=== PATIENT | female | born 1965 | race Two or more races ===

== ENCOUNTER 2021-11-15 19:06 | Inpatient (IN) | payer BC, OTHER ==
[~2021-11-15] VITALS: Ht 160 cm; Wt 93.9 kg
--- NOTE | 2021-11-15 19:53 | NUR ---
IV LINE ESTABLISHED, RHAND 20G
--- NOTE | 2021-11-15 19:53 | NUR ---
BLOOD COLLECTED AND SENT TO LAB
[2021-11-15] MEDS ORDERED: ONDANSETRON HCL/PF 4 MG/2 ML VIAL ONE (19:55)
[2021-11-15] MEDS ORDERED: ONDANSETRON HCL/PF 4 MG/2 ML VIAL IVP ONE (20:00)
[2021-11-15] MEDS ORDERED: IV NS 0.9% 1,000 ML BAG IV ONE (20:00)
[2021-11-15 20:01] LABS: BASOPHILS # (AUTO) 0.1 K/uL (0.0-0.2); BASOPHILS % (AUTO) 0.5 % (0.0-2.0); HEMATOCRIT 42 % (33-45); HEMOGLOBIN 13.6 g/dL (11.5-14.8); LYMPHOCYTES # (AUTO) 2.1 K/uL (0.8-4.8); LYMPHOCYTES % (AUTO) 18.2 % (20.0-44.0); MEAN CORPUSCULAR HGB CONC 32 g/dl (31.0-36.0); MEAN CORPUSCULAR VOLUME 82 fL (82-100); MONOCYTES # (AUTO) 0.5 K/uL (0.1-1.30); MONOCYTES % (AUTO) 4.4 % (2.0-12.0); NEUTROPHILS % (AUTO) 75.9 % (43.0-81.0); PLATELET COUNT (AUTO) 325 K/uL (150-450); RED BLOOD CELL COUNT(AUTO) 5.14 MIL/uL (4.0-5.2); WHITE BLOOD COUNT (AUTO) 11.8 K/uL (4.3-11.0)
--- NOTE | 2021-11-15 20:08 | NUR ---
[id number] FRM HOME C/O DIZZINESS, NAUSEA, VOMITING (DRY HEAVING), ALSO C/O ANXIETY AND PANIC ATTACK. STACY STRENGTH ON BUE AND BLE. TOLERATING R/A AT 98%.
[2021-11-15 20:16] LABS: CALCIUM, SERUM 9.1 mg/dL (8.5-10.1); CARBON DIOXIDE 23 mmol/L (21-32); CHLORIDE 102 mmol/L (98-107); GLUCOSE 204 mg/dL (74-106); POTASSIUM 3.1 mmol/L (3.5-5.1); SODIUM SERUM 138 mmol/L (136-145); UREA NITROGEN, BLOOD 14 mg/dL (7-18)
[2021-11-15 20:22] LABS: ALANINE AMINOTRANSFERASE 28 U/L (12-78); ALBUMIN 3.8 g/dL (3.4-5.0); ALKALINE PHOSPHATASE 96 U/L (46-116); ASPARTATE AMINOTRANSFERASE 24 U/L (15-37); BILIRUBIN,DIRECT 0.1 mg/dL (0.0-0.2); BILIRUBIN,TOTAL 0.4 mg/dL (0.2-1.0)
--- NOTE | 2021-11-15 20:27 | NUR ---
COVID SWAB DONE AND SENT TO LAB
[2021-11-15] MEDS ORDERED: MECLIZINE HCL 12.5 MG TABLET PO ONE (20:30)
[2021-11-15] MEDS ORDERED: LORAZEPAM INJ 2 MG/ML VIAL IV ONE (20:30)
[2021-11-15] MEDS ORDERED: MECLIZINE HCL 25 MG TABLET ONE (21:07)
[2021-11-15] MEDS ORDERED: LORAZEPAM INJ 2 MG/ML VIAL ONE (21:08)
[2021-11-15] MEDS ORDERED: ACETAMINOPHEN 325 MG TABLET PO PRN (22:00)
[2021-11-15] MEDS ORDERED: ONDANSETRON HCL/PF 4 MG/2 ML VIAL IVP PRN (22:00)
[2021-11-15] MEDS ORDERED: POTASSIUM CHLORIDE 20 MEQ TAB.PRT.SR PO ONE ×2 (22:00→23:51)
[2021-11-15] MEDS ORDERED: MAGNESIUM HYDROXIDE 30 ML UDC PO PRN (22:00)
[2021-11-15] MEDS ORDERED: ZOLPIDEM TARTRATE 5 MG TABLET PO PRN (22:00)
[2021-11-15] MEDS ORDERED: Z GUARD REMEDY 4 OZ OINT TP PRN (22:00)
[2021-11-15] MEDS ORDERED: MAG HYDROX/AL HYDROX/SIMETH 30 ML UDC PO PRN (22:00)
[2021-11-15] MEDS ORDERED: OLME1TAB16 PO (22:04)
--- NOTE | 2021-11-15 23:57 | NUR ---
REPORT GIVEN TO YENY Newsome FOR [facility].
--- NOTE | 2021-11-16 | NUR ---
RN NOTES RECEIVED REPORT FROM GHISLAINE VAZQUEZ; AWAITING PATIENT ARRIVAL TO UNIT
--- NOTE | 2021-11-16 00:30 | NUR ---
PT TRANSFERRED TO 311-2 VIA ACLS PROTOCOL. VSS. ALL BELONGINGS WITH PT.
--- NOTE | 2021-11-16 01:00 | NUR ---
BREAKDOWN PERSONETCH OPERATOR SEMICONDUCTOR WAFERS NOTES PATIENT ARRIVED ON UNIT ACCOMPANIED BY 2 ER STAFF; PATIENT A/OX4, ABLE TO MAKE NEEDS KNOWN; PATIENT BREATHING EVEN AND UNLABORED; NO SOB NOTED; TOLERATING ROOM AIR WELL; TELE MONITOR READS SINUS RHYTHM 67BPM WITH 1ST DEGREE AVB; PATIENT REPORTED TO COME TO HOSPITAL DUE TO DIZZINESS AND ANXIETY ATTACK, SHE MENTIONED SHE CAME HOME FROM WORK AND FELT TIRED SO SHE NAPPED, AFTER WAKING FROM HER NAP, THE DIZZINESS STARTED; SHE REPORTS DIZZINESS INTENSIFIES WITH MOVEMENT AND BRIGHT LIGHTS; R HAND #20 S/L NOTED, INTACT AND PATENT, FLUSHING WELL; PATIENT SKIN INTACT; VSS; BELONGINGS CHECKED WITH CHAIN MAKER MACHINE AT BEDSIDE; PATIENT ORIENTED TO STAFF AND TO UNIT; PATIENT WAS INFORMED TO USE CALL LIGHT IF NEEDS ASSISTANCE TO AMBULATE TO RESTROOM, PATIENT VERBALIZED UNDERSTANDING OF INSTRUCTIONS; SAFETY PRECAUTIONS IMPLEMENTED; BED LOCKED IN LOW POSITION; SIDE RAILSX2, CALL LIGHT WITHIN REACH; AWAITING MD ORDERS
[2021-11-16 01:13] VITALS: BP 117/70
[2021-11-16] MEDS: MECLIZINE HCL 25 MG TABLET PO SCH ×3 (05:49→20:18)
--- NOTE | 2021-11-16 06:41 | NUR ---
LUNCHROOM MONITOR CLOSING NOTES PATIENT RESTING IN BED COMFORTABLY, PATIENT A/OX4, ABLE TO MAKE NEEDS KNOWN; PATIENT BREATHING EVEN AND UNLABORED; NO SOB NOTED; TOLERATING ROOM AIR WELL; TELE MONITOR READS SINUS RHYTHM 74BPM WITH 1ST DEGREE AVB; R HAND #20 S/L NOTED, INTACT AND PATENT, FLUSHING WELL; ALL NEEDS RENDERED; SAFETY PRECAUTIONS IMPLEMENTED; BED LOCKED IN LOW POSITION; SIDE RAILSX2, CALL LIGHT WITHIN REACH; WILL ENDORSE [facility] TO ONCOMING SHIFT
--- NOTE | 2021-11-16 07:30 | NUR ---
GAS LINE INSTALLER SUPERVISOR OPENING NOTES RECEIVED PATIENT ON BED RESTING AND A/O X4. ON ROOM AIR TOLERATING WELL. NO SOB NOTED. NOT IN DISTRESS. WITH NO COMPLAINTS OF PAIN AND DIZZINESS AT THIS TIME. ON TELE MONITOR CURRENTLY READING SINUS RHTYHM WITH 1ST DEGREE AVB AT 66BPM. WITH IV ACCESS AT THE RIGHT HAND G20 SALINE LOCKED, PATENT AND INTACT. SAFETY MEASURES IN PLACED. CALL LIGHT WITHIN REACH. BED ON LOWEST LOCKED POSITION, SIDE RAILS UP X2. WILL CONTINUE TO MONITOR.
[2021-11-16 07:48] LABS: BASOPHILS % (AUTO) 0.2 % (0.0-2.0); EOSINOPHILS % (AUTO) 0.4 % (0.0-6.0); HEMATOCRIT 37 % (33-45); HEMOGLOBIN 12.2 g/dL (11.5-14.8); LYMPHOCYTES # (AUTO) 1.4 K/uL (0.8-4.8); LYMPHOCYTES % (AUTO) 16.3 % (20.0-44.0); MEAN CORPUSCULAR HGB CONC 33 g/dl (31.0-36.0); MEAN CORPUSCULAR VOLUME 81 fL (82-100); MONOCYTES # (AUTO) 0.4 K/uL (0.1-1.30); MONOCYTES % (AUTO) 4.7 % (2.0-12.0); NEUTROPHILS # (AUTO) 6.5 K/uL (1.8-8.9); NEUTROPHILS % (AUTO) 78.4 % (43.0-81.0); PLATELET COUNT (AUTO) 291 K/uL (150-450); RED BLOOD CELL COUNT(AUTO) 4.52 MIL/uL (4.0-5.2); WHITE BLOOD COUNT (AUTO) 8.3 K/uL (4.3-11.0)
[2021-11-16 07:59] LABS: CALCIUM, SERUM 8.4 mg/dL (8.5-10.1); CREATININE 0.8 mg/dL (0.6-1.3); MAGNESIUM 2.1 mg/dL (1.8-2.4); PHOSPHORUS 3.9 mg/dL (2.5-4.9); POTASSIUM 3.8 mmol/L (3.5-5.1)
[2021-11-16] MEDS: LOSARTAN POTASSIUM 50 MG TABLET PO SCH (08:14)
[2021-11-16] MEDS: HYDROCHLOROTHIAZIDE 25 MG TABLET PO SCH (08:15)
[2021-11-16 08:39] VITALS: BP 118/76
[2021-11-16 16:06] VITALS: BP 122/70
[2021-11-16] MEDS ORDERED: GADOTERATE MEGLUMINE 10 MMOL/20 ML VIAL IV ONE (17:34)
--- NOTE | 2021-11-16 19:03 | NUR ---
MANAGER INTERNAL CLOSING NOTES PATIENT ON BED RESTING AND A/O X4. ON ROOM AIR TOLERATING WELL. NO SOB NOTED. NOT IN DISTRESS. WITH NO COMPLAINTS OF PAIN AND DIZZINESS AT THIS TIME. ON TELE MONITOR CURRENTLY READING SINUS RHYTHM WITH 1ST DEGREE AVB AT 74BPM. WITH IV ACCESS AT THE RIGHT HAND G20 SALINE LOCKED, PATENT AND INTACT. DUE MEDS GIVEN. SAFETY MEASURES IN PLACED. CALL LIGHT WITHIN REACH. BED ON LOWEST LOCKED POSITION, SIDE RAILS UP X2. WILL ENDORSE TO NEXT SHIFT FOR [facility].
--- NOTE | 2021-11-16 19:40 | NUR ---
CHIEF OPERATOR SYNTHESIS OPENING NOTES PATIENT RECEIVED RESTING IN BED COMFORTABLY, PATIENT A/OX4, ABLE TO MAKE NEEDS KNOWN; PATIENT BREATHING EVEN AND UNLABORED; NO SOB NOTED; TOLERATING ROOM AIR WELL; PATIENT FAMILY AT BED SIDE; TELE MONITOR READS SINUS RHYTHM 74BPM WITH 1ST DEGREE AVB; R HAND #20 S/L NOTED, INTACT AND PATENT, FLUSHING WELL; SAFETY PRECAUTIONS IMPLEMENTED; BED LOCKED IN LOW POSITION; SIDE RAILSX2, CALL LIGHT WITHIN REACH; WILL CONTINUE PLAN OF CARE; PER AM SHIFT, PATIENT WENT FOR MRI EARLIER TODAY, AWAITING RESULTS.
[2021-11-16 20:00] VITALS: BP 134/73
[2021-11-17] VITALS: BP 117/77
[2021-11-17 04:00] VITALS: BP 127/71
[2021-11-17] MEDS: MECLIZINE HCL 25 MG TABLET PO SCH ×2 (05:32→13:54)
[2021-11-17 06:40] LABS: BASOPHILS % (AUTO) 0.6 % (0.0-2.0); EOSINOPHILS % (AUTO) 2.2 % (0.0-6.0); HEMATOCRIT 37 % (33-45); HEMOGLOBIN 12.6 g/dL (11.5-14.8); LYMPHOCYTES # (AUTO) 1.4 K/uL (0.8-4.8); LYMPHOCYTES % (AUTO) 23.2 % (20.0-44.0); MEAN CORPUSCULAR HGB CONC 34 g/dl (31.0-36.0); MEAN CORPUSCULAR VOLUME 81 fL (82-100); MONOCYTES # (AUTO) 0.4 K/uL (0.1-1.30); MONOCYTES % (AUTO) 5.8 % (2.0-12.0); NEUTROPHILS # (AUTO) 4.2 K/uL (1.8-8.9); NEUTROPHILS % (AUTO) 68.2 % (43.0-81.0); PLATELET COUNT (AUTO) 282 K/uL (150-450); RED BLOOD CELL COUNT(AUTO) 4.61 MIL/uL (4.0-5.2); WHITE BLOOD COUNT (AUTO) 6.1 K/uL (4.3-11.0)
--- NOTE | 2021-11-17 06:51 | NUR ---
INSULATION CUTTER AND FORMER CLOSING NOTES PATIENT RESTING IN BED COMFORTABLY, PATIENT A/OX4, ABLE TO MAKE NEEDS KNOWN; PATIENT BREATHING EVEN AND UNLABORED; NO SOB NOTED; TOLERATING ROOM AIR WELL; TELE MONITOR READS SINUS RHYTHM 74BPM WITH 1ST DEGREE AVB; PATIENT REPORTED TO BE FEELING MUCH BETTER COMPARED TO YESTERDAY NIGHT; R HAND #20 S/L NOTED, INTACT AND PATENT, FLUSHING WELL; ALL NEEDS RENDERED; SAFETY PRECAUTIONS IMPLEMENTED; BED LOCKED IN LOW POSITION; SIDE RAILSX2, CALL LIGHT WITHIN REACH; WILL ENDORSE [facility] TO ONCOMING SHIFT
[2021-11-17 07:08] LABS: CALCIUM, SERUM 8.5 mg/dL (8.5-10.1); CREATININE 0.8 mg/dL (0.6-1.3); POTASSIUM 3.7 mmol/L (3.5-5.1)
--- NOTE | 2021-11-17 07:33 | NUR ---
RN NOTE PT RESTING ASLEEP IN BED, NOT IN DISTRESS. CONT IN ROOM AIR. WITH IV ACCESS ON LFA G18 AND R HAND G20. SAFETY MEASURES FOLLOWED. WILL CONT TO MONITOR.
[2021-11-17 09:19] VITALS: BP 116/77
[2021-11-17] MEDS: HYDROCHLOROTHIAZIDE 25 MG TABLET PO SCH (09:19)
[2021-11-17] MEDS: LOSARTAN POTASSIUM 50 MG TABLET PO SCH (09:19)
[2021-11-17] MEDS ORDERED: MECL-159 PO (11:46)
--- NOTE | 2021-11-17 14:12 | NUR ---
RN NOTE PT D/C TO HOME, ACCOMPANIED BY SON. IN GOOD CONDITION. NO C/O OF DIZZINESS. PT IV ACCESS REMOVED. D/C INSTRUCTION DISCUSSED AND GIVEN TO PT AND SON, AND GUILLERMO VERBALIZED UNDERSTANDING.
== END 2021-11-17 14:10 | disposition home or self-care (01) | DRG 149 ==
LOC: ER 19:09 → TELE 23:26
PROVIDERS: ADMIT Student in an Organized Health Care Education/Training Program; ATTEND Nurse Practitioner Acute Care
DX: H81.10 Benign paroxysmal vertigo, unspecified ear (principal); E87.6 Hypokalemia; I10 Essential (primary) hypertension; F41.9 Anxiety disorder, unspecified; Z20.822 Contact with and (suspected) exposure to COVID-19; F41.0 Panic disorder [episodic paroxysmal anxiety]; I44.0 Atrioventricular block, first degree; D72.829 Elevated white blood cell count, unspecified; D32.9 Benign neoplasm of meninges, unspecified
CPT/HCPCS: 36415; 70450-TC; 70553-TC; 80048-TC; 80076-TC; 83735-TC; 84100-TC; 84484-TC; 85025-TC; 87081-TC; 97116-TC; 97530-TC; A9575; C9803; G0378; J2060; J2405; J7030; J8597